=== PATIENT | male | born 1950 | race Caucasian/White ===

== ENCOUNTER 2019-12-15 13:57 | Outpatient (CLI) | payer MEDICARE, OTHER, SELFPAY ==
--- NOTE | 2019-12-15 14:16 | CT_ITS ---
WS: [id number] CT CHEST TECHNIQUE: Noncontrast CT of the chest with coronal and sagittal reformatted images. CLINICAL INFORMATION: SOLITARY PULMONARY NODULE COMPARISON: CT chest November 09, 2008. DLP: 732.[address] scans at [facility] use at least one of these dose optimization techniques: automat ed exposure control; mA and/or kV adjustment per patient size (includes targeted exams where dose is matched to clinical indication); or iterative reconstruction. FINDINGS: Hyperinflation with moderate bullous emphysematous changes worse in the upper lobes slightly progress ed since 2008. 9 mm previously described pulmonary nodule along the left fissure inferior lingula segment appears sl ightly smaller today. This measures approximately 8.1 x 8.3 mm by my measurements today. Previously t his measured approximately 9.1 x 9.2 mm. Slight fibrosis in the lung apices. No other suspicious pulmonary parenchymal opacities. Subsegmental atelectasis in the lung bases. Normal caliber thoracic aorta. Mild aortic calcification. Coronary ca lcification. No mediastinal or hilar lymphadenopathy. Normal endobronchial tree. Adrenal glands are normal. Cholecystectomy clips. Moderate thoracic kyphosis. CT/CT chest wo con [id number] IMPRESSION: 1. Previously described 9 mm noncalcified nodule along the left fissure and in ferior lingula appears slightly smaller today and measures 8.0 x 8.3 mm compare d to 9.1 x 9.2 mm previously. 2. No other suspicious pulmonary opacities. 3. Moderate chronic emphysematous changes appear slightly progressed. 4. No mediastinal or hilar lymphadenopathy. 5. Mild aortic and coronary calcification. 6. Prior cholecystectomy.
== END 2019-12-15 13:58 | disposition home or self-care (01) ==
LOC: RADWPI 14:12
PROVIDERS: Family Provider Nurse Practitioner Family; PCP Nurse Practitioner Family; Visit Provider Nurse Practitioner Family
DX: R91.1 Solitary pulmonary nodule (principal); J43.9 Emphysema, unspecified
CPT/HCPCS: 71250

== ENCOUNTER 2020-02-17 07:35 | Outpatient (CLI) | payer MEDICARE, OTHER, SELFPAY ==
--- NOTE | 2020-02-17 12:54 | PFTS_ITS ---
Date of Study:02/17/20 Date of Dictation: MECHANICS: Forced vital capacity (FVC) is normal. Forced expiratory volume in one second (FEV1) is normal. FEV1/FVC is reduced. FLOW VOLUME LOOP: Mild scooping. LUNG VOLUMES: Total lung capacity (TLC) is normal. Residual volume (RV) is elevated. DIFFUSING CAPACITY FOR CARBON MONOXIDE: Not measured. INTERPRETATION: The pulmonary function tests are consistent with mild obstruction. Lung volumes are consistent with air trapping. Gas exchange (DLCO) was not measured. MTDD
== END 2020-02-17 07:36 | disposition home or self-care (01) ==
LOC: RT 07:35
PROVIDERS: Family Provider Nurse Practitioner Family; PCP Nurse Practitioner Family; Visit Provider Nurse Practitioner Family
DX: J44.9 Chronic obstructive pulmonary disease, unspecified (principal)
CPT/HCPCS: 94010; 94726; 94729

== ENCOUNTER 2020-06-17 16:26 | Outpatient (CLI) | payer MEDICARE, OTHER, SELFPAY ==
[2020-06-17 16:54] LABS: Basophils % 0.6 %; Eosinophils # 0.1 10^3/uL (0.0-0.8); Eosinophils % 0.9 %; Hematocrit 44.5 % (42.0-52.0); Hemoglobin 14.2 g/dL (11.7-16.6); Lymphocytes # 1.4 10^3/uL (0.8-4.8); Lymphocytes % 21.4 %; Mean Corpuscular HGB Conc 31.9 g/dL (30.0-36.0); Mean Corpuscular Hemoglobin 33.2 pg (28.0-34.0); Mean Platelet Volume 10.7 fL (7.4-10.4); Monocytes # 0.7 10^3/uL (0.2-0.9); Monocytes % 10.5 %; Neutrophils # 4.21 10^3/uL (1.8-7.7); Nucleated Red Blood Cells % 0 %; Platelet Count 231 10^3/cmm (130-400); Red Blood Count 4.28 10^6/uL (4.1-5.3); Red Cell Distribution Width 13.1 % (12.1-15.1); White Blood Count 6.4 10^3/uL (4.0-10.0)
[2020-06-17 17:08] LABS: Alanine Aminotransferase 16 U/L (0-41); Albumin Level 4.4 g/dL (3.5-5.2); Alkaline Phosphatase 98 IU/L (40-130); Anion Gap 13.2 (5-19); Aspartate Amino Transferase 16 U/L (0-40); Blood Urea Nitrogen 13 mg/dL (8-23); Calcium 9.2 mg/dL (8.5-10.5); Carbon Dioxide 27 mmol/L (22-29); Chloride 104 mmol/L (98-107); Ferritin 178 ng/mL (30-400); Globulin 2.2 g/dL (1.3-4.6); Glomerular Filtration Rate 84.2 mL/min (90-130); Glucose 138 mg/dL (65-115); Osmolality Calculated 292 mOsm/kg (285-295); Potassium 4.2 mmol/L (3.5-5.1); Sodium 140 mmol/L (136-145); Total Bilirubin 0.4 mg/dL (0.15-1.2); Total Protein 6.6 g/dL (6.6-8.7)
[2020-06-17 17:20] LABS: Estmated Average Glucose 111; Hemoglobin A1C 5.5 % (4.0-6.0)
[2020-06-17 19:19] LABS: Thyroid Stimulating Hormone 1.53 uIU/mL (0.27-4.20); Vitamin B12 288 pg/mL (232-1245)
== END 2020-06-17 16:27 | disposition home or self-care (01) ==
LOC: LAB 16:29
PROVIDERS: PCP Nurse Practitioner Family; Visit Provider Nurse Practitioner Family
DX: R23.3 Spontaneous ecchymoses; R73.01 Impaired fasting glucose; R53.82 Chronic fatigue, unspecified
CPT/HCPCS: 80053; 82607; 82728; 83036; 84443; 85025

== ENCOUNTER → 2023-03-20 11:51 | Outpatient (BNVA) | payer MEDICARE, OTHER, SELFPAY | PROVIDERS: PCP Registered Nurse; Visit Provider Registered Nurse | DX: R11.0 Nausea (principal); Z91.018 Allergy to other foods | CPT/HCPCS: 86003; 86008 ==

== ENCOUNTER → 2024-06-18 07:57 | Outpatient (BNVA) | payer MEDICARE, OTHER, SELFPAY | PROVIDERS: PCP Registered Nurse; Referring Provider Registered Nurse; Visit Provider Nurse Practitioner Family | DX: L57.0 Actinic keratosis (principal); B07.8 Other viral warts; L21.8 Other seborrheic dermatitis; B35.1 Tinea unguium; D69.2 Other nonthrombocytopenic purpura; D22.39 Melanocytic nevi of other parts of face | CPT/HCPCS: 17000; 17110; 99204 ==

== ENCOUNTER → 2024-07-03 09:46 | Outpatient (BNVA) | payer MEDICARE, OTHER, SELFPAY | PROVIDERS: PCP Registered Nurse; Visit Provider Nurse Practitioner Family | DX: L82.1 Other seborrheic keratosis (principal); D22.5 Melanocytic nevi of trunk; L21.8 Other seborrheic dermatitis; F17.200 Nicotine dependence, unspecified, uncomplicated; B07.8 Other viral warts; L57.0 Actinic keratosis; T21.33XA Burn of third degree of upper back, initial encounter; X58.XXXA Exposure to other specified factors, initial encounter | CPT/HCPCS: 17000; 17110; 99214 ==

== ENCOUNTER → 2024-07-25 07:55 | Outpatient (BNVA) | payer MEDICARE, OTHER, SELFPAY | PROVIDERS: PCP Registered Nurse; Visit Provider Nurse Practitioner Family | DX: D18.01 Hemangioma of skin and subcutaneous tissue (principal); F17.200 Nicotine dependence, unspecified, uncomplicated; B07.8 Other viral warts; L29.89 Other pruritus; L53.8 Other specified erythematous conditions | CPT/HCPCS: 17110; 99213 ==